=== PATIENT | male | born 1990 | race Caucasian/White ===

== ENCOUNTER 2025-04-07 10:24 | Outpatient (REF) | payer OTHER, SELFPAY ==
[2025-04-07 11:32] LABS: MANUAL DIFF FLAG NO
[2025-04-07 12:19] LABS: Hematocrit 46.1 % (42.0-52.0); Hemoglobin 15.8 g/dl (14.0-18.0); Imm Gran Abs Auto 0.02 X10*3/uL (0.00-0.03); Imm Gran Pct Auto 0.3 % (0.0-0.4); Lymphocytes Absolute Auto 2.0 X10*3/uL (1.2-4.9); Mean Corpuscular HGB Conc 34.3 g/dl (31.0-36.0); Mean Corpuscular Hemoglobin 30.2 pg (27.0-33.0); Mean Corpuscular Volume 88.1 fL (80.0-98.0); NRBC Abs Auto 0.000 X10*3/uL (0.0-0.012); NRBC Pct Auto 0.0 /100WBC (0.0-0.2); Platelet Count 211 X10*3/uL (160-400); Red Blood Count 5.23 X10*6/uL (4.60-5.80); White Blood Count 7.6 X10*3/uL (4.8-10.8)
[2025-04-07 12:56] LABS: Alanine Aminotransferase 36 U/L (0-40); Albumin Level 5.2 g/dL (3.5-5.0); Alkaline Phosphatase 78 U/L (39-117); Anion Gap 10 (12-20); Aspartate Amino Transferase 27 U/L (5-37); Blood Urea Nitrogen 13 mg/dL (9-16); Calcium 9.5 mg/dL (8.4-10.2); Carbon Dioxide 27 mmol/L (22-29); Chloride 107 mmol/L (96-108); Estimated Glomerular Filt Rate > 60; Potassium 4.0 mmol/L (3.3-5.1); Sodium 140 mmol/L (135-145); Total Protein 7.4 g/dL (6.5-8.0)
== END 2025-04-07 10:25 | disposition home or self-care (01) ==
LOC: HO.LAB 10:24
PROVIDERS: PCP Hospitalist; Visit Provider Nurse Practitioner Family
DX: K92.1 Melena (principal); K60.2 Anal fissure, unspecified
CPT/HCPCS: 36415; 80053; 85025

== ENCOUNTER 2025-04-07 10:24 | Outpatient (AMB) | payer OTHER, SELFPAY ==
--- NOTE | 2025-04-07 10:27 | MHC.OFFVIS ---
Vital Signs 04/07/25 10:30 Height 5 ft 5 in Weight 164 lb BMI 27.3 BP 111/62 Blood Pressure Location Lt brachial Position Sitting Pulse 94 Intake Visit Reasons: GI bleeding Intake Note: Patient new consult for Lower GI bleeding Patient cc: rectal bleeding due hemorrhoids ?? on and off. Denies any other GI issues fortoday visit. [employer] Required: No Accompanied by: Self / Same As Patient Allergies No Known Allergies Allergy (Verified 04/07/25 10:27) Medication List - Last Reconciled 04/07/25 by Kayla Hawkins CNP amlodipine 10 mg PO DAILY atorvastatin 10 mg PO DAILY valacyclovir 1,000 mg PO BID PRN HPI HPI GI bleeding: Details: Patient is a 34-year-old male with PMH of hypertension, hyperlipidemia. Referred by PCP for further evaluation of blood in stool. Patient reports a six-month history of intermittent bright red blood per rectum, most often observed on toilet paper but occasionally seen in the toilet bowl as well. Bowel movements are daily, with an increase in frequency to two to three times most mornings. Stools are described as generally formed, though there is reported variability with some being loose. The patient experiences rectal pain and soreness primarily while wiping, sometimes accompanied by a burning sensation afterward, which is not constant. No associated abdominal pain (except for rare, brief episodes of lower abdominal discomfort resolving spontaneously and likely situational), nausea, vomiting, or fever. Appetite remains good, with recent weight gain rather than unexplained weight loss. Notably, patient has observed a correlation between heavier alcohol intake and episodes of rectal bleeding. [id number] topical preparation (Preparation H) has resulted in limited symptom improvement. Mild, intermittent heartburn occurs several times monthly, managed with dante, Tums, or Pepto, with good effect. Denies dysphagia or regurgitation. No history of GI cancer in first-degree relatives. Medical history includes hypertension and hyperlipidemia managed with medications as noted; no recent changes to medication or diet at symptom onset. Patient denies: fever/chills, n/v, appetite changes, regurgitation,dysphasia, unintentional wt loss, ab pain. Social hx: -ETOH use, socially 3x/week -occasionally consumes marijuana, denies recreational drug use -occasion cigar, denies regular nicotine - family hx as below -denies personal hx of CA -denies significant cardiopulmonary history -tolerated anesthesia in the past without difficulty. [facility] Medical History (Updated 04/07/25 @ 11:13 by Kayla Hawkins CNP) Anal fissure Blood in stool Surgical History (Updated 04/07/25 @ 10:33 by Marleni Carlson) Hx of tooth extraction Hx of umbilical hernia repair Family History Father Heart disease Hyperlipemia Mother TIA (transient ischemic attack) Diabetes Social History Household Members: Family Alcohol intake: current Alcohol intake frequency: a few times a week Patient Tobacco Use Status: Never used Tobacco Review of Systems Const Reports as per HPI ENT Reports as per HPI Card Reports as per HPI Resp Reports as per HPI GI Reports as per HPI Reports as per HPI Physical Exam Vital Signs: Last Vital Signs Pulse 94 04/07/25 10:30 BP 111/62 04/07/25 10:30 BMI result Body Mass Index 27.3 Const General: healthy appearing, no acute distress and well developed Nutritional Appearance: average body habitus Orientation/consciousness: patient oriented x3 HEENT Head: Yes normal to inspection, Yes normocephalic and Yes atraumatic Face and sinus: Yes normal facial exam Eyes General: appearance normal, both eyes and all related structures Neck Neck: Yes normal visual inspection Resp Effort & Inspection: normal respiratory effort, able to speak in complete sentences, no tracheal deviation and symmetric chest movement Auscultation: clear to auscultation bilaterally Cardio Jugular venous distension: no JVD Rate: regular rate Rhythm: regular rhythm Heart sounds: S1 normal heart sound present, S2 normal heart sound present, no gallops and no murmurs GI Other: Single perianal fissure noted at proximal (superior) position, associated with focal tenderness Inspection: Yes normal to inspection and No distended Palpation (GI): Soft to palpation, not firm, nontender and No hepatosplenomegaly present Auscultation: normal bowel sounds Rectal Exam - Male: Yes visual inspection normal, Yes normal sphincter tone, No External hemorrhoid(s) present, No Rectal prolapse, No Lesions present (GI), No Fistula present (GI), No Laceration(s) present (GI), No fecal impaction, Yes Anal fissure(s) present, No hemorrhoids, No mass and No tenderness Neuro General: patient oriented x3 Gait exam (Neuro): Normal gait present Psych Appearance: grossly normal Mental Status: mental status grossly normal Speech and movement: Normal speech and movement present Affect: normal affect Attitude: cooperative Thought process: Normal thought process present Thought content: Normal thought content present Insight: Good insight present (Psych) Judgement: Good judgement present (Psych) Assessment & Plan Assessment & Plan (1) Blood in stool: Code(s): K92.1 - Melena Category: Medical Plan: Need to exclude neoplastic, vascular, and inflammatory etiologies due to persistent rectal bleeding. DDX: fissure VS Internal hemorrhoids (not palpated/externalized on exam) VS Colonic neoplasm (lower risk given age, negative family history, stable weight, no systemic sx, but needs to be ruled out due to bleeding) VS Inflammatory bowel disease (unlikely given isolated symptoms) VS Diverticular bleed (less likely, but cannot rule out without further eval) VS Polyp/mass (cannot rule out absent direct visualization) Additional Testing: - flexible sigmoidoscopy to exclude internal/structural pathologies given symptom duration and need for diagnostic certainty. - CBC, LFTs already noted above. Medication Management: - None specific beyond stool softener and topical for fissure unless guided otherwise by colonoscopic findings. Lifestyle Recommendations: - As above. Follow-Up: - To be scheduled in coordination with procedure; immediate communication if sx worsen. (2) Anal fissure: Code(s): K60.2 - Anal fissure, unspecified Category: Medical Plan: Consistent clinical history and physical findings. Additional Testing: - CBC, LFTs to rule out anemia and assess hepatic function. - Sigmoidoscopy as above Medication Management: - Continue topical Preparation H as needed. - Recommend OTC stool softener (e.g., docusate 100 mg, 1-2 tabs qhs prn), ensure not using stimulant laxative. Lifestyle Recommendations: - Increase dietary fiber and water intake (fruits, vegetables, legumes, oats, nuts). - Avoid straining; minimize alcohol intake which appears to exacerbate bleeding. - Minimize use of medicated wipes; avoid regular use to decrease irritation. Follow-Up: - Return visit post-endoscopic evaluation or earlier if bleeding worsens, new sx develop, or symptoms resolve before procedure. - Laboratory results to be obtained at in-house lab for care continuity; results to be communicated via portal or phone. Plan Follow-up after endoscopy or sooner as needed Time: I spent a total of 45 minutes on the date of encounter which includes: Preparing to see the patient (reviewed previous documentation, test results and medical history) Performing a medically appropriate exam and/or evaluation Ordering medications, tests, and procedures Documenting clinical information in the health record Orders: Orders Comprehensive [place]. Panel Fast 04/07/25 K92.1 - Melena Complete Blood Count Auto Diff 04/07/25 K92.1 - Melena Referrals GI Procedure Notification K60.2 - Anal fissure, unspecified, K92.1 - Melena Medications: New bisacodyl Take per colonoscopy instructions 5 mg PO ONCE 4 tabs 0RF polyethylene glycol 3350 (Miralax) per colonoscopy prep instructions 238 grams PO ONCE 238 grams 0RF Coding Level of Care Code New Pt New Pt Level 4 (83871) Patient Type New Diagnoses Blood in stool K92.1 Anal fissure K60.2
[2025-04-07 10:30] VITALS: BP 111/62; PULSE 94; BMI 27.3
== END 2025-04-07 11:14 | disposition home or self-care (01) ==
PROVIDERS: Visit Provider Nurse Practitioner Family
DX: K92.1 Melena (principal); K60.2 Anal fissure, unspecified
CPT/HCPCS: 99204

== ENCOUNTER 2025-06-11 11:16 | Day surgery (SDC) | payer OTHER, SELFPAY ==
--- OUTSIDE RECORDS SUMMARY | 2025-05-19 08:00 | XMS_ITS | Patient Health Record ---
Author Organization [facility] Address [address] [place] [address] Care Team Providers Care Weave Room Supervisor Name Role Phone FELIPE ALVA Primary Care Provider Nat Durbin Unavailable [phone] Allergies No Known Allergies Reason For Referral Reason Lower GI bleed occas ionally Please evaluate and treat Diagnosis 1 Gastrointestinal hem orrhage, unspecified (K92.2) Referral Organization [facility] ter Referring Provider First Name FELIPE Referring Provider Last Name NIDA Referring Provider Speciality Internal M edicine Referred Provider Specialty Gastroentero logy General Notes Please call the [facility] to schedule the appointment, [facility] Gastroenterology - [phone], Le Ramos 10/20/2024 03:19:28 PM > Referral Priority Routine Medications Medication SIG (Take, Route, Frequency, Duration) Notes Start Date End Date Status amLODIPine Besylate 10 MG TAKE 1 TABLET BY MOUTH EVERY DAY FOR 90 DAYS; Duration: 90 Active Atorvastatin Calcium 10 MG TAKE 1 TABLET BY MOUTH EVERY DAY FOR 90 DAYS; Duration: 90 Active valACYclovir HCl 1 GM 1 tablet Orally as needed; Duration: 10 days 10/23/2023 Active Immunizations Vaccine Route Administration Date Status Comme nts COVID 19 Moderna Unknown 03/20/2022 Administered COVID Moderna Unknown 10/12/2020 Administered COVID Moderna Unknown 11/08/2020 Administered COVID Moderna Unknown 05/21/2021 Administered Flublok Unknown 04/04/2015 Administered Flublok Unknown 03/13/2016 Administered Flublok Unknown 03/26/2024 Administered Fluzone QD Unknown 03/15/2020 Administered Fluzone QD Unknown 04/10/2021 Administered Fluzone QD Unknown 03/20/2022 Administered Fluzone QD Unknown 03/27/2023 Administered Fluzone QD IM Intramuscular 04/13/2025 Administered Td (adult) preservative free Unknown 01/28/2021 Administered Social History Tobacco Use: Social History Observation Description Date Details (start date - stop date) Never Smoker NA - NA Tobacco Use/Smoking Question Answer Notes Are you a nonsmoker AUDIT-C (Standard) Question Answer Notes Did you have a drink contain ing alcohol in the past year? Yes How often did you have a dri nk containing alcohol in the past year? 2 to 4 times a month (2 points) How many drinks did you have on a typical day when you were drinking in the past year? 1 or 2 drinks (0 point) How often did you have six o r more drinks on one occasion in the past year? Never (0 point) Points 2 Interpretation Negative Problems Problem Type SNOMED Code ICD Code Onset Dates Problem Status W/U Status Risk Notes Problem Mixed hyperlipidemia (362762743) Mixed hyperlipidemia (E78.2) Active confirmed Problem Essential hypertension (35383762) Essential (primary) hypertension (I10) Active confirmed Vital Signs Heart Rate 73 /min 04/13/2025 Temperature 97.7 degrees Fahrenheit 04/13/2025 Oximetry 96 % 04/13/2025 Blood pressure diastolic 82 mm Hg 04/13/2025 Height 5'5'' in 04/13/2025 Blood pressure systolic 130 mm Hg 04/13/2025 Weight 163.8 lbs 04/13/2025 BMI 27.25 kg/m2 04/13/2025 Encounters Encounter Location Date Provider Diagnosis [address] [place] [address] 10/20/2024 FELIPE ALVA Essential (primary) hypertension I10 ; Mixed hyperlipidemia E78.2 ; Prediabetes R73.03 and Gastrointestinal hemorrhage, unspecified K92.[address] [place] [address] 04/13/2025 Nat Durbin Essential (primary) hypertension I10 ; Annual visit for general adult medical examination without abnormal findings Z00.00 ; Mixed hyperlipidemia E78.2 ; Prediabetes R73.03 and Encounter for immunization Z23 Assessments Encounter Date Diagnosis (ICD Code) Assessment Notes Treatment Notes Treatment Clinical Notes Section Notes 10/20/2024 Mixed hyperlipidemia (ICD-10 - E78.2) Breezy is a 33-year-old gentleman with hypertension, hyperlipidemia, prediabetes is here today for follow-up. He complained of intermittent bright blood per rectum plan is as follows. Hypertension. Blood pressure reasonably controlled on amlodipine 10 mg 1 tablet daily. Low-sodium diet recommended Hyperlipidemia. Continue on atorvastatin 10 mg daily and check lipid panel Prediabetes. Diet restrictions discussed and also advised low calorie, low carbohydrate diet. Lower GI bleed. His rectal exam is negative for hemorrhoids, growths. Differential can be AV malformation or internal polyps. He is given referral to see GI. Screening blood work before next appointment 10/20/2024 Essential (primary) hypertension (ICD-10 - I10) Breezy is a 33-year-old gentleman with hypertension, hyperlipidemia, prediabetes is here today for follow-up. He complained of intermittent bright blood per rectum plan is as follows. Hypertension. Blood pressure reasonably controlled on amlodipine 10 mg 1 tablet daily. Low-sodium diet recommended Hyperlipidemia. Continue on atorvastatin 10 mg daily and check lipid panel Prediabetes. Diet restrictions discussed and also advised low calorie, low carbohydrate diet. Lower GI bleed. His rectal exam is negative for hemorrhoids, growths. Differential can be AV malformation or internal polyps. He is given referral to see GI. Screening blood work before next appointment 04/13/2025 Essential (primary) hypertension (ICD-10 - I10) Breezy is a 34-year-old gentleman with hypertension, hyperlipidemia, prediabetes is here today for Annual physical examination. plan is as follows. Hypertension. Blood pressure reasonably controlled on amlodipine 10 mg 1 tablet daily. Low-sodium diet recommended EKG is done in the office today with a heart rate of 58 bpm, sinus rhythm. No ST elevation or depression. No bundle branch block. He recently had blood work done through the GI shows normal kidney, liver and electrolytes function. Hyperlipidemia. Continue on atorvastatin 10 mg daily and check lipid panel Prediabetes. Diet restrictions discussed and also advised low calorie, low carbohydrate diet. Anal fissure. He is currently taking stool softeners, recent CBC done by the GI shows normal H&H. he will be getting a colonoscopy. He follows with [facility]. He takes valacyclovir as needed Cannabis use. Advised abstinence Alcohol use. Advised abstinence Immunization. Full vaccine is updated today He is up to date On age specific screenings and vaccinations [facility]. Up to date Dermatology. No suspicious lesions at this point Screening blood work before next appointment General concerns have been discussed I have rendered the services for this patient under direct supervision of Dr. Alva, who did not see the patient but was available upon request Content of this note has been dictated using voice recognition software. Despite multiple revisions, Errors may persist 04/13/2025 Annual visit for general adult medical examination without abnormal findings (ICD-10 - Z00.00) Breezy is a 34-year-old gentleman with hypertension, hyperlipidemia, prediabetes is here today for Annual physical examination. plan is as follows. Hypertension. Blood pressure reasonably controlled on amlodipine 10 mg 1 tablet daily. Low-sodium diet recommended EKG is done in the office today with a heart rate of 58 bpm, sinus rhythm. No ST elevation or depression. No bundle branch block. He recently had blood work done through the GI shows normal kidney, liver and electrolytes function. Hyperlipidemia. Continue on atorvastatin 10 mg daily and check lipid panel Prediabetes. Diet restrictions discussed and also advised low calorie, low carbohydrate diet. Anal fissure. He is currently taking stool softeners, recent CBC done by the GI shows normal H&H. he will be getting a colonoscopy. He follows with [facility]. He takes valacyclovir as needed Cannabis use. Advised abstinence Alcohol use. Advised abstinence Immunization. Full vaccine is updated today He is up to date On age specific screenings and vaccinations [facility]. Up to date Dermatology. No suspicious lesions at this point Screening blood work before next appointment General concerns have been discussed I have rendered the services for this patient under direct supervision of Dr. Alva, who did not see the patient but was available upon request Content of this note has been dictated using voice recognition software. Despite multiple revisions, Errors may persist 10/20/2024 Prediabetes (ICD-10 - R73.03) Breezy is a 33-year-old gentleman with hypertension, hyperlipidemia, prediabetes is here today for follow-up. He complained of intermittent bright blood per rectum plan is as follows. Hypertension. Blood pressure reasonably controlled on amlodipine 10 mg 1 tablet daily. Low-sodium diet recommended Hyperlipidemia. Continue on atorvastatin 10 mg daily and check lipid panel Prediabetes. Diet restrictions discussed and also advised low calorie, low carbohydrate diet. Lower GI bleed. His rectal exam is negative for hemorrhoids, growths. Differential can be AV malformation or internal polyps. He is given referral to see GI. Screening blood work before next appointment 04/13/2025 Mixed hyperlipidemia (ICD-10 - E78.2) Breezy is a 34-year-old gentleman with hypertension, hyperlipidemia, prediabetes is here today for Annual physical examination. plan is as follows. Hypertension. Blood pressure reasonably controlled on amlodipine 10 mg 1 tablet daily. Low-sodium diet recommended EKG is done in the office today with a heart rate of 58 bpm, sinus rhythm. No ST elevation or depression. No bundle branch block. He recently had blood work done through the GI shows normal kidney, liver and electrolytes function. Hyperlipidemia. Continue on atorvastatin 10 mg daily and check lipid panel Prediabetes. Diet restrictions discussed and also advised low calorie, low carbohydrate diet. Anal fissure. He is currently taking stool softeners, recent CBC done by the GI shows normal H&H. he will be getting a colonoscopy. He follows with [facility]. He takes valacyclovir as needed Cannabis use. Advised abstinence Alcohol use. Advised abstinence Immunization. Full vaccine is updated today He is up to date On age specific screenings and vaccinations [facility]. Up to date Dermatology. No suspicious lesions at this point Screening blood work before next appointment General concerns have been discussed I have rendered the services for this patient under direct supervision of Dr. Alva, who did not see the patient but was available upon request Content of this note has been dictated using voice recognition software. Despite multiple revisions, Errors may persist 04/13/2025 Prediabetes (ICD-10 - R73.03) Breezy is a 34-year-old gentleman with hypertension, hyperlipidemia, prediabetes is here today for Annual physical examination. plan is as follows. Hypertension. Blood pressure reasonably controlled on amlodipine 10 mg 1 tablet daily. Low-sodium diet recommended EKG is done in the office today with a heart rate of 58 bpm, sinus rhythm. No ST elevation or depression. No bundle branch block. He recently had blood work done through the GI shows normal kidney, liver and electrolytes function. Hyperlipidemia. Continue on atorvastatin 10 mg daily and check lipid panel Prediabetes. Diet restrictions discussed and also advised low calorie, low carbohydrate diet. Anal fissure. He is currently taking stool softeners, recent CBC done by the GI shows normal H&H. he will be getting a colonoscopy. He follows with [facility]. He takes valacyclovir as needed Cannabis use. Advised abstinence Alcohol use. Advised abstinence Immunization. Full vaccine is updated today He is up to date On age specific screenings and vaccinations [facility]. Up to date Dermatology. No suspicious lesions at this point Screening blood work before next appointment General concerns have been discussed I have rendered the services for this patient under direct supervision of Dr. Alva, who did not see the patient but was available upon request Content of this note has been dictated using voice recognition software. Despite multiple revisions, Errors may persist 10/20/2024 Gastrointestinal hemorrhage, unspecified (ICD-10 - K92.2) Breezy is a 33-year-old gentleman with hypertension, hyperlipidemia, prediabetes is here today for follow-up. He complained of intermittent bright blood per rectum plan is as follows. Hypertension. Blood pressure reasonably controlled on amlodipine 10 mg 1 tablet daily. Low-sodium diet recommended Hyperlipidemia. Continue on atorvastatin 10 mg daily and check lipid panel Prediabetes. Diet restrictions discussed and also advised low calorie, low carbohydrate diet. Lower GI bleed. His rectal exam is negative for hemorrhoids, growths. Differential can be AV malformation or internal polyps. He is given referral to see GI. Screening blood work before next appointment 04/13/2025 Encounter for immunization (ICD-10 - Z23) Breezy is a 34-year-old gentleman with hypertension, hyperlipidemia, prediabetes is here today for Annual physical examination. plan is as follows. Hypertension. Blood pressure reasonably controlled on amlodipine 10 mg 1 tablet daily. Low-sodium diet recommended EKG is done in the office today with a heart rate of 58 bpm, sinus rhythm. No ST elevation or depression. No bundle branch block. He recently had blood work done through the GI shows normal kidney, liver and electrolytes function. Hyperlipidemia. Continue on atorvastatin 10 mg daily and check lipid panel Prediabetes. Diet restrictions discussed and also advised low calorie, low carbohydrate diet. Anal fissure. He is currently taking stool softeners, recent CBC done by the GI shows normal H&H. he will be getting a colonoscopy. He follows with [facility]. He takes valacyclovir as needed Cannabis use. Advised abstinence Alcohol use. Advised abstinence Immunization. Full vaccine is updated today He is up to date On age specific screenings and vaccinations [facility]. Up to date Dermatology. No suspicious lesions at this point Screening blood work before next appointment General concerns have been discussed I have rendered the services for this patient under direct supervision of Dr. Alva, who did not see the patient but was available upon request Content of this note has been dictated using voice recognition software. Despite multiple revisions, Errors may persist Plan Of Treatment Future Test Test Name Order Date Hemoglobin [id number] 10/20/2024 Albumin/Creatinine Ratio,Urine-[id number] Lipid Panel-[id number] 10/20/2024 Comp. Metabolic Panel [id number] 2024 Next Appt Details Provider Name:FELIPE ALVA , 10/12/2025 08:30:00 AM, [address] [place] [address], [id number], Insurance Providers Payer Name Payer Address Payer Phone Subscriber Number Group Number Insured Name Patient Relationship to Insured Coverage Start Date Coverage End Date [facility] [address] [place] [address] [id number] Riki Awan Self - patient is the insured 3 Medical (General) History Medical History History ICD Code hypertension hyperlipidemia Surgical History Surgery Date(Month/Year) umbilical hernia repair right tibia fracture
--- NOTE | 2025-06-09 10:13 | HO.ANESPROP2 ---
Documented by User: Corie Michaels NP 06/09/25 10:13 HPI - Anesthesia Eval Consult details Narrative: 34yo M for Colonoscopy [facility] Active Problems Active Problems: All Active Problems Anal fissure (Acute) Blood in stool (Acute) Past Medical History Medical History Anal fissure Blood in stool Family History Family History Father Heart disease Hyperlipemia Mother TIA (transient ischemic attack) Diabetes Surgical History Surgical History Hx of tooth extraction Hx of umbilical hernia repair Social History Social History Household Members: Family Alcohol intake: current Alcohol intake frequency: a few times a week Patient Tobacco Use Status: Never used Tobacco Substance Use Type Other:: Gummies-last dose 06/06/25 Are you DNR?: No Advance Directives: No Advance Directives Information Provided: Yes Meds Allergies Allergy/AdvReac Type Severity Reaction Status Date / Time No Known Allergies Allergy Verified 04/07/25 10:27 Home Medications ?Medication ?Instructions ?Recorded ?Confirmed ?Last Taken ?Type amlodipine 10 mg tablet 10 mg PO DAILY 03/12/25 06/11/25 Unknown History atorvastatin 10 mg tablet 10 mg PO DAILY 03/12/25 06/11/25 Unknown History valacyclovir 1 gram tablet 1,000 mg PO BID PRN Cold Sores 04/07/25 06/11/25 Unknown History Assessment and Plan Assessment Anesthesia Assessment: Chart Reviewed Documented by User: Aaron Oakley MD 06/11/25 13:46 PMFSH Past Medical History Medical History Anal fissure Blood in stool Family History Family History Father Heart disease Hyperlipemia Mother TIA (transient ischemic attack) Diabetes Family history of problems with anesthesia: No Surgical History Surgical History Hx of tooth extraction Hx of umbilical hernia repair History of Problems with Anesthesia: No Social History Social History Household Members: Family Alcohol intake: current Alcohol intake frequency: a few times a week Patient Tobacco Use Status: Never used Tobacco Substance Use Type Other:: Gummies-last dose 06/06/25 Are you DNR?: No Advance Directives: No Advance Directives Information Provided: Yes Meds Allergies Allergy/AdvReac Type Severity Reaction Status Date / Time No Known Allergies Allergy Verified 04/07/25 10:27 Home Medications ?Medication ?Instructions ?Recorded ?Confirmed ?Last Taken ?Type amlodipine 10 mg tablet 10 mg PO DAILY 03/12/25 06/11/25 Unknown History atorvastatin 10 mg tablet 10 mg PO DAILY 03/12/25 06/11/25 Unknown History valacyclovir 1 gram tablet 1,000 mg PO BID PRN Cold Sores 04/07/25 06/11/25 Unknown History Exam Exam Date and Time: 06/11/2025 Airway Mallampati Class: II TM Dist: >3cm Neck ROM: Full Heart: rrr Lungs: ctab vesicular Assessment and Plan Assessment Anesthesia Assessment: Anesthesia Plan Discussed Final Anesthetic Review Family History of Problems with Anesthesia: No History of Problems with Anesthesia: No NPO: Yes ASA Class: II Final Preanesthetic Review: No Changes in Pt Med Stat, Meds/Allgs Chart Reviewed, Consent Obtained/Reviewed and Anes Risks/Benef Reviewed Patient Risk: Low Procedure Risk: Low Anesthetic Plan Anesthetic Plan: MAC: Disposition: Standard PACU
--- NOTE | 2025-06-11 11:50 | MHC.SHP ---
Pre-Procedural Eval Section A - 24 Hr Update-Section A only Date of Service: 06/11/25 Section B - Complete if H&P > 30 days Chief Complaint: Anal fissure,melena Details of Present Illness: Anal fissure Blood in stool Surgical History (Updated 04/07/25 @ 10:33 by Marleni Carlson) Hx of tooth extraction Hx of umbilical hernia repair Allergies: Allergies Allergy/AdvReac Type Severity Reaction Status Date / Time No Known Allergies Allergy Verified 04/07/25 10:27 Review of Systems Review of Systems Comment: Ten point ROS negative Exam Exam Comment: Gen appear: No acute distress HEENT: no icterus Chest: No overt resp distress Abd: soft, nontender, nondistended Psych: Stable affect, answering questions appropriately Neuro: A/Ox3 noted to move all extremities spontaneously Ext: no peripheral edema Plan Diagnosis/Plan: Unchanged I have reviewed the history and physical and performed a pertinent physical examination on my patient. No changes have occurred unless specified. Time Spent With Patient Time: Total time managing care of this patient today ____ minutes.
[2025-06-11 11:53] VITALS: BMI 26.4
[2025-06-11 12:30] VITALS: BP 126/89; PULSE 71; RESP 16; TEMP 36.9; O2SAT 97
[2025-06-11] MEDS: Lactated Ringers 1,000 ML 100 ML IVCONT (12:30)
--- NOTE | 2025-06-11 13:40 | P.OPN-COLO_ITS ---
Colonoscopy Operative Note Operative Note Date of Service: 06/11/25 Narrative: Procedure: Colonoscopy Indication: Rectal bleeding Endoscopist: Maryana Patrick MD Anesthesia Provider: Aaron Cooper CRNA Anesthesia type: MAC Instrument: Olympus [id number]-H190L Consent: Indication, risks vs benefits, and alternatives were discussed with the patient who gave written informed consent to proceed. EKG, pulse, pulse oximetry and blood pressure were monitored throughout the procedure. Please see anesthesia flowsheet. Procedure: The patient was brought to the procedure room and placed in the left lateral decubitus position. IV medications were administered by the anesthesia provider in attendance. A digital rectal exam was performed which was normal. A distal attachment cap was affixed to the tip of the colonoscope which was then inserted through the anus and advanced through the colon to the cecum at 75 cm,and terminal ileum. Appendiceal orifice and ileocecal valve were identified. Mucosa was carefully examined under high definition white light as the instrument was slowly withdrawn in a retrograde panoramic fashion. Retroflexion was performed in rectum. The procedure was not difficult. There were no immediate obvious complications. The quality of the prep was BBPS: 3+2+3 = adequate Withdrawal time 12 minutes. Limitations: No limitations. Findings: Mucosa: Normal to cecum and terminal ileum. Protruding lesions: * Medium internal hemorrhoids with stigmata of recent bleeding. Excavated lesions: * Few diverticula in sigmoid colon. Impression: 1. Normal colon and terminal ileum mucosa 2. Diverticulosis 3. Internal hemorrhoids Recommendations: - Start CRC screening at 43 y.o
[2025-06-11 13:44] VITALS: BP 104/65; PULSE 69; RESP 10; TEMP 36.1; O2SAT 94
[2025-06-11 13:58] VITALS: BP 107/73; PULSE 75; RESP 15; O2SAT 97
== END 2025-06-11 14:45 | disposition home or self-care (01) ==
PROVIDERS: PCP Hospitalist; Visit Provider Internal Medicine
PROC: 0DJD8ZZ Inspection of Lower Intestinal Tract, Via Natural or Artificial Opening Endoscopic (ICD-10-PCS; CPT 45378; principal; 2025-06-11 13:00)
DX: K92.1 Melena (principal); K60.2 Anal fissure, unspecified; K64.8 Other hemorrhoids; K57.30 Diverticulosis of large intestine without perforation or abscess without bleeding
CPT/HCPCS: 45378; J2003; J2250; J2704; J3010

== ENCOUNTER → 2025-06-11 11:16 | Outpatient (BNV) | payer OTHER, SELFPAY | PROVIDERS: PCP Hospitalist; Visit Provider Internal Medicine | DX: K62.5 Hemorrhage of anus and rectum (principal); K57.30 Diverticulosis of large intestine without perforation or abscess without bleeding; K64.8 Other hemorrhoids | CPT/HCPCS: 45378 ==